=== PATIENT | male | born 1955 | race Caucasian/White ===

== ENCOUNTER 2016-04-15 12:54 | Emergency (ER) | payer BC, OTHER ==
[~2016-04-15] VITALS: Wt 83.5 kg
[2016-04-15] MEDS ORDERED: IPRATROPIUM (NEB) 0.5 MG/2.5 ML AMP NEB STA (13:38)
[2016-04-15] MEDS ORDERED: ALBUTEROL 0.5% (NEB) 2.5 MG/0.5 ML AMP NEB STA ×2 (13:38→15:35)
[2016-04-15] MEDS ORDERED: METHYLPREDNISOLONE 125 MG INJ IV ONE (14:00)
[2016-04-15 14:02] LABS: HEMATOCRIT 46.2 % (42.0-52.0); HEMOGLOBIN 15.9 g/dl (14.0-18.0); MEAN CORPUSCULAR HEMOGLOBIN 29.9 pg (29.0-33.0); MEAN CORPUSCULAR HGB CONC 34.5 g/dl (32.0-37.0); MEAN CORPUSCULAR VOLUME 86.5 fl (82.0-101.0); PLATELET COUNT 220 10^3/UL (140-440); RED BLOOD COUNT 5.34 10^6/ul (4.70-6.10); RED CELL DISTRIBUTION WIDTH 13.6 % (11.5-14.5); UNCORRECTED WBC 7.2 10^3/ul (4.8-10.8); WHITE BLOOD COUNT 7.2 10^3/ul (4.8-10.8)
[2016-04-15 14:04] LABS: BASOPHILS % 0.1 % (0.0-2.0); CONDITION 1; EOSINOPHILS # 0.1 10^3/ul (0.0-0.5); EOSINOPHILS % 0.8 % (0.0-7.0); LH ANALYZER COMMENTS 1; LYMPHOCYTES # 1.6 10^3/ul (0.8-2.9); LYMPHOCYTES % 22.4 % (15.0-51.0); MONOCYTE # 0.5 10^3/ul (0.3-0.9); MONOCYTES % 7.3 % (0.0-11.0); NEUTROPHILS % 69.4 % (39.0-77.0); SUSPECT 1
[2016-04-15 14:21] LABS: CHLORIDE 97 mmol/L (97-110); POTASSIUM 3.6 mmol/L (3.5-5.1); SODIUM 137 mmol/L (135-144)
--- NOTE | 2016-04-15 14:23 | RADRPT ---
PROCEDURE: XR Chest. CLINICAL INDICATION: Chest pain TECHNIQUE: AP Portable chest. COMPARISON: None available FINDINGS: The soft tissues and bones are normal. No focal infiltrates, masses, or effusions are noted. The m ediastinum and heart are normal. No pneumothorax is present. IMPRESSION: 1. No radiographic evidence for acute cardiopulmonary disease. RPTAT: HDC .Sahra León MD, MD Date Time Electronically viewed and signed by .Sahra León MD, on 04/15/2016 14:23 .C/
[2016-04-15 14:24] LABS: ANION GAP 17 (8-16); BLOOD UREA NITROGEN 16 mg/dl (7-20); CALCIUM 9.1 mg/dl (8.4-10.2); CARBON DIOXIDE 27 mmol/L (21-31); CREATININE 0.73 mg/dl (0.61-1.24); GLUCOSE 107 mg/dl (70-220)
[2016-04-15 14:37] LABS: TROPONIN-I < 0.010 ng/ml (0.00-0.12)
[2016-04-15] MEDS ORDERED: ALBU8.5H3 INH (16:20)
[2016-04-15] MEDS ORDERED: OSLT75C PO (16:20)
[2016-04-15] MEDS ORDERED: PITA2TAB PO (16:20)
[2016-04-15 16:30] VITALS: BP 121/91; PULSE 103; RESP 18
[2016-04-15] MEDS ORDERED: PRED20TA PO (16:34)
--- NOTE | 2016-04-15 16:39 | ERD ---
ER Documentation Chief Complaint Date/Time DATE: 04/15/16 TIME: 16:35 Chief Complaint cp, sob, cough HPI This is 60-year-old male who is here for cough. The patient states he has had a cough with some white sputum production for the past 7 days. The patient saw his primary care physician earlier this week and he is currently taking an inhaler with Zithromax and Tamiflu. He is not on prednisone. Patient says he has had some wheezing this morning with some mild shortness of breath. He also says his left anterior chest hurts when he coughs. No diaphoresis no fever no exertional dyspnea no shortness of breath or abdominal pain vomiting diarrhea. ROS All systems reviewed and are negative except as per history of present illness. Medications Home Meds Active Scripts Prednisone* (Prednisone*) 20 Mg Tab, 60 MG PO DAILY for 5 Days, TAB Prov:ANNABEL CHRISTIANSON DO 04/15/16 Reported Medications Albuterol Sulfate* (Proair HFA*) 8.5 Gm Hfa.aer.ad, 2 PUFF INH Q4H Y for WHEEZING AND SOB, #1 INHALER 04/15/16 Oseltamivir Phosphate* (Tamiflu*) 75 Mg Capsule, 75 MG PO DAILY, CAP 04/15/16 Pitavastatin Calcium (Livalo) 2 Mg Tablet, 2 MG PO DAILY, TAB 04/15/16 Allergies Allergies: Coded Allergies: No Known Drug Allergies (Verified Allergy, 06/13/13) PMhx/Soc History of Surgery: Yes (INGUINAL HERNIA REPAIR) Anesthesia Reaction: No Hx Neurological Disorder: No Hx Respiratory Disorders: Yes (CURRENTLY BEING TREATED FOR URI) Hx Cardiac Disorders: Yes (HDL) Hx Psychiatric Problems: No Hx Miscellaneous Medical Probl: No Hx Alcohol Use: No Hx Substance Use: No Hx Tobacco Use: No Smoking Status: Never smoker FmHx Family History: No coronary disease Physical Exam Vitals Vital Signs Date Time Temp Pulse Resp B/P Pulse Ox O2 Delivery O2 Flow Rate FiO2 04/15/16 15:49 78 18 96 21 04/15/16 14:30 80 18 108/86 97 Room Air 04/15/16 14:26 81 18 98 21 04/15/16 12:59 98.4 88 20 135/91 95 Physical Exam Const: Well-developed, well-nourished Head: Atraumatic, normocephalic Eyes: Normal Conjunctiva, PERRLA, EOMI, normal sclera, no nystagmus ENT: Normal External Ears, Nose and Mouth, moist mucus membranes. Neck: Full range of motion. No meningismus, no lymphadenopathy. Resp: Bilateral diffuse wheezing and rhonchi no increased work of breathing Cardio: Regular rate and rhythm, no murmurs, S1 S2 present, the left anterior chest is tender to palpation at the anterior mid clavicular ribs 5 6 and 7. Pain is 100% reproducible with palpation and with twisting of the trunk Abd: Soft, non tender x 4, non distended. Normal bowel sounds, no guarding or rebound, no pulsitile abdominal masses or bruits Skin: No petechiae or rashes, no ecchymosis , no maculopapular rash Back: No midline or flank tenderness Ext: No cyanosis, or edema, FROM x 4, normal inspection, neurovascularly intact x 4 Neur: Awake and alert, STR 5/5 x 4, sensation intact x 4, no focal findings, cerebellum intact Psych: Normal Mood and Affect Result Diagram: 04/15/16 1355 04/15/16 1355 Results 24 hrs Laboratory Tests Test 04/15/16 13:55 Anion Gap 17 Basophils # 0.010^3/ul Basophils % 0.1% Blood Urea Nitrogen 16mg/dl Calcium Level 9.1mg/dl Carbon Dioxide Level 27mmol/L Chloride Level 97mmol/L Creatinine 0.73mg/dl Differential Comment AUTO w/SCAN Eosinophils # 0.110^3/ul Eosinophils % 0.8% Glucose Level 107mg/dl Hematocrit 46.2% Hemoglobin 15.9g/dl Large Platelets OCCASIONAL Lymphocytes # 1.610^3/ul Lymphocytes % 22.4% Mean Corpuscular Hemoglobin 29.9pg Mean Corpuscular Hemoglobin Concent 34.5g/dl Mean Corpuscular Volume 86.5fl Mean Platelet Volume 8.0fl Monocytes # 0.510^3/ul Monocytes % 7.3% Neutrophils # 5.010^3/ul Neutrophils % 69.4% Nucleated Red Blood Cells # 0.010^3/ul Nucleated Red Blood Cells % 0.0/100WBC Platelet Count 83848^3/UL Potassium Level 3.6mmol/L Red Blood Count 5.3410^6/ul Red Cell Distribution Width 13.6% Sodium Level 137mmol/L Troponin I < 0.010ng/ml White Blood Count 7.210^3/ul Current Medications Medications (Trade) Dose Ordered Sig/Emma Route PRN Reason Start Time Stop Time Status Last Admin Dose Admin Albuterol (Proventil 0.5% (Neb)) 7.5 mg ONCE STAT NEB 04/15/16 13:38 04/15/16 13:40 DC 04/15/16 14:24 Ipratropium Sealy (Atrovent 0.02% (Neb)) 1.5 mg ONCE STAT NEB 04/15/16 13:38 04/15/16 13:40 DC 04/15/16 14:24 Methylprednisolone Sodium Succinate (Solu-Medrol) 125 mg ONCE ONCE IV 04/15/16 14:00 04/15/16 14:01 DC 04/15/16 14:07 Albuterol (Proventil 0.5% (Neb)) 5 mg ONCE STAT NEB 04/15/16 15:35 04/15/16 15:36 DC 04/15/16 15:48 Procedures/MDM EKG: Rate/Rhythm: Normal Sinus Rhythm,NL intervals, left axis deviation QRS, ST, QT: NORMAL NV, QRS, QT] Impression: NORMAL EKG PROCEDURE: XR Chest. CLINICAL INDICATION: Chest pain TECHNIQUE: AP Portable chest. COMPARISON: None available FINDINGS: The soft tissues and bones are normal. No focal infiltrates, masses, or effusions are noted. The mediastinum and heart are normal. No pneumothorax is present. IMPRESSION: 1. No radiographic evidence for acute cardiopulmonary disease. RPTAT: HD .Sahra León MD, Date Time Electronically viewed and signed by .Sahra León MD, on 04/15/2016 14: 23 .C/ CC: ANNABEL CHRISTIANSON DO Patient received albuterol and Atrovent nebulizer treatments 2. States he was reassessed with much improved air movement and lung sounds. Room air saturation is 96%. He says he feels much better. No evidence of pneumonia on chest x-ray. I will add prednisone to his current arsenal of medication he is taking for bronchitis. The chest pain is clearly chest wall in origin is only worse when he coughs and palpation and movement. Departure Diagnosis: Primary Impression: Bronchitis Additional Impression: Chest wall pain Condition: Stable Patient Instructions: Bronchitis With Wheezing (Adult), Chest Wall Strain ANNABEL CHRISTIANSON DO Apr 15, 2016 16:38
== END 2016-04-15 17:00 | disposition home or self-care (01) ==
LOC: E/R 12:54
DX: J40 Bronchitis, not specified as acute or chronic (principal); R07.89 Other chest pain
CPT/HCPCS: 71010; 80048; 84484; 85025; 93005; 94640; 94664; J2930; 36415; 96374

== ENCOUNTER 2017-11-24 22:16 | Emergency (ER) | END 2017-11-24 23:50 | disposition home or self-care (01) ==

== ENCOUNTER 2017-11-25 18:16 | Emergency (ER) | END 2017-11-25 21:43 | disposition home or self-care (01) ==

== ENCOUNTER 2017-11-29 01:01 | Inpatient (IN) | END 2017-11-29 14:00 | disposition home or self-care (01) | DRG 699 ==